=== PATIENT | male | born 2000 | race Caucasian/White ===

== ENCOUNTER → 2021-11-09 12:04 | Outpatient (CLI) | payer OTHER, SELFPAY ==
--- NOTE | ~2021-11-09 | XR_ITS ---
EXAMINATION: XR wrist LT min 3V DATE: 11/09/2021 12:18 INDICATION: Left wrist pain. TECHNIQUE: 4 views of left wrist were obtained. COMPARISON: None. FINDINGS: Bone alignment is normal. No fracture. Joint spaces are well maintained. IMPRESSION: 1. Normal left wrist. Reviewed, dictated and finalized at location A. IMPRESSION: 1. Normal left wrist.
== END ==
PROVIDERS: PCP Family Medicine; Visit Provider Nurse Practitioner Family
DX: M25.532 Pain in left wrist (principal)
CPT/HCPCS: 73110

== ENCOUNTER 2024-01-26 13:17 | Outpatient (CLI) | payer BC, SELFPAY ==
--- NOTE | ~2024-01-26 | CT_ITS ---
CT of the Abdomen and Pelvis: Indication: Hematochezia Technique: 2.5 mm axial scans were obtained through the abdomen and pelvis following intravenous adm inistration of 100 cc of Omnipaque 350. Dose reduction technique was used on this scan by utilizing a utomated exposure control and iterative reconstruction technique. The dose-length product (DLP) was 1 108.15 mGy-cm. Findings: Scans through the lung bases are unremarkable. The liver, spleen, pancreas, gallbladder, adrenals and kidneys are within normal limits. No evidence of aortic aneurysm. No lymphadenopathy. No bowel obstruction or bowel wall thickening. There is no evidence to suggest acute appendicitis. Images through the pelvis were performed. Urinary bladder unremarkable. No pelvic mass seen. No ascit es. Impression: No significant abnormalities seen. Reviewed, dictated and finalized at [facility]. Impression: No significant abnormalities seen.
== END 2024-01-26 13:18 ==
LOC: MICIMG 13:18
PROVIDERS: PCP Family Medicine; Visit Provider Family Medicine
DX: K92.1 Melena (principal); R53.83 Other fatigue; R19.7 Diarrhea, unspecified
CPT/HCPCS: 74177; Q9967

== ENCOUNTER 2025-06-02 08:03 | Outpatient (CLI) | payer BC, SELFPAY ==
--- NOTE | ~2025-06-02 | CT_ITS ---
EXAMINATION: CT soft tissue neck w con DATE: 06/02/2025 08:31 INDICATION: Throat pain. TECHNIQUE: Computed tomography (CT) of the neck was performed with 75 mL Omnipaque-350 intravenous contrast. Automated exposure control and iterative reconstruction technique were employed. The dose-length product was 520.57 mGy-cm. COMPARISON: None FINDINGS: There are no pathologically enlarged lymph nodes. The major salivary glands are normal. The mastoid air cells are normal. There is mucosal thickening in the paranasal sinuses. The pharynx and larynx are normal. There is mild cervical spondylosis. IMPRESSION: 1. No etiology for the patient's symptoms. Reviewed, dictated and finalized at location E. SPORTATION PLANNING TECHNICIAN
== END 2025-06-02 08:04 | disposition home or self-care (01) ==
PROVIDERS: PCP Family Medicine; Visit Provider Pediatrics
DX: R07.0 Pain in throat (principal)
CPT/HCPCS: 70491; Q9967

== ENCOUNTER 2025-07-08 12:27 | Outpatient (CLI) | payer BC, SELFPAY ==
--- OUTSIDE RECORDS SUMMARY | 2024-06-16 03:00 | XMS_ITS ---
Author Organization [facility] [place] Address [address] [place] [address] Care Team Providers Care Pigment And Lacquer Mixer Name Role Phone Dr. Edwar Escalante Primary Care Provider [phone] Migration, Provider Unavailable Unavailable REASON FOR VISIT EMR-Theo Encounters Encounter Location Date Provider Diagnosis [facility] [address] [place] [address] 06/16/2024 Provider Migration Plan Of Treatment Medication Medication Name Sig Start Date Stop Date Notes Silvadene 1 % Cream External two times a day; Duration: 0 01/22/2022 10/17/2023 ,discontinuereason: Discontinued Naproxen 500 MG Tablet 1 Oral two times a day; Duration: 14 11/10/2021 11/23/2021 dexAMETHasone 6 MG Tablet 1 Oral every d ay; Duration: 5 03/16/2024 03/20/2024 Vitamin D3 oral; Duration: 0 10/27/2021 10/17/2023 ,discon tinuereason: Discontinued *Pick strength-form from [facility] for eRX* traMADol HCl 50 MG Tablet 1 Oral Q6H; Duration: 0 03/16/2024 03/16/2024 Sulfamethoxazole-Trimetho prim 800-160 MG Tablet 1 Oral two times a day; Duration: 08/18/2022 08/27/2022 Progress Notes * Nick BILLYDOB:2000 (25 yo M)Acc No.[id number]:06/16/2024 Patient: Blake Nick CLEMENT :2000 A ge:24 Y S ex:Male Phone: Address:[address] [place] [address], [phone] * Refills Stop dexAMETHasone Tablet, 6 MG, Oral, 5, 1, every day, 5 Stop Vitamin D3, oral, 0 Stop Sulfamethoxazole-Trimethoprim Tablet, 800-160 MG, Oral, 20, 1, two times a day, 10 Stop Naproxen Tablet, 500 MG, Oral, 28, 1, two times a day, 14 Stop traMADol HCl Tablet, 50 MG, Oral, 25, 1, Q6H, 0 Stop dexAMETHasone Tablet, 6 MG, Oral, 1, 1, every day, 1 Stop Silvadene Cream, 1 %, External, 30, two times a day, 0 Subjective: * Chief Complaints: * E MR-Theo Objective: Past Vitals:* 05/29/2024 BP: 132/82 mm Hg, HR: 70 /mi n, Oxygen sat %: 97 %, Wt: 242.13 lbs, Wt-k.83 kg * 01/25/2024 BP: 132/83 mm Hg, HR: 74 /mi n, Oxygen sat %: 98 %, Wt: 248.79 lbs, Wt-k.85 kg * * Date:
--- OUTSIDE RECORDS SUMMARY | 2024-06-17 03:00 | XMS_ITS ---
Author Organization [facility] Address [address] [place] [address] Care Team Providers Care Certified Physician Assistant Name Role Phone Dr. Edwar Escalante Primary Care Provider [phone] Migration, Provider Unavailable Unavailable Allergies Allergen (clinical drug ingredient) Drug/Non Drug Allergy documented on EMR Reaction Allergy Type Onset Date Status cephalexin Cephalexin hives Drug Allergy 10/27/2021 Acti ve REASON FOR VISIT EMR-Theo Medications Medication SIG (Take, Route, Frequency, Duration) Notes Start Date End Date Status tiZANidine HCl 4 MG Tablet 1 Oral Q6H; Duration: 7 ,PRN Reason:for back pain 03/16/2024 Active Ketoconazole 2 % Cream External two time s a day; Duration: 0 04/12/2024 Active Encounters Encounter Location Date Provider Diagnosis [facility] [address] [place] [address] 06/17/2024 Provider Migration Plan Of Treatment No Information Progress Notes * Nick BILLYDOB:2000 (25 yo M)Acc No.[id number]:06/17/2024 Patient: Blake CLEMENT Nick :2000 A ge:24 Y S ex:Male Phone: Address:[address] [place] [address], [phone] Subjective: * Chief Complaints: * E MR-Theo * Family History: G randmother: Paternal Grandmother: Diabetes mellitus Type 2. * Medications: T akingtiZANidine HCl 4 MG Tablet 1 Oral Q6H , Notes to Pharmacist: ,PRN Reason:for back painKetoconazole 2 % Cream External two times a day Taking tiZANidine HCl 4 MG Tablet 1 Oral Q6H , Notes to Pharmacist: ,PRN Reason:for back painTaking Ketoconazole 2 % Cream External two times a day * Allergies: C ephalexin: hives - Allergy - Onset Date 10/27/2021 Objective: Past Vitals:* 05/29/2024 BP: 132/82 mm Hg, HR: 70 /mi n, Oxygen sat %: 97 %, Wt: 242.13 lbs, Wt-k.83 kg * 01/25/2024 BP: 132/83 mm Hg, HR: 74 /mi n, Oxygen sat %: 98 %, Wt: 248.79 lbs, Wt-k.85 kg * * Date:
--- NOTE | ~2025-07-08 | XR_ITS ---
EXAMINATION: SCOLIOSIS DATE: 07/10/2025 13:26 KITCHEN STEWARD/STEWARDESS INDICATION: Spinal curvature TECHNIQUE: Standing AP and lateral views of the thoracolumbar spine FINDINGS: There are 12 rib bearing thoracic vertebral bodies and 5 non-rib bearing lumbar type vertebral bodies. There is no listhesis, compression deformity or vertebral body anomalies. There is mild S-shaped curvature of the thoracolumbar spine measuring 6 degrees at the thoracic spine centered at T9 and 4 degrees in the lumbar spine centered at L3-4. IMPRESSION: 1. Mild S-shaped curvature of the thoracolumbar spine described above. 2. No vertebral body anomalies. Reviewed, dictated and finalized at location O. HEN STEWARD/STEWARDESS
--- OUTSIDE RECORDS SUMMARY | 2025-07-08 13:57 | XMS_ITS | Encounter Summary ---
Author Organization [facility] Address [facility] [place] [address] Care Team Providers Care Continuous Pickling Line Pickler Name Role Phone Edwar Escalante MD Primary Care Provider Encounter Details Date Type Department Care Team (Late st Contact Info) Description 05/26/2022 [employer] Message [facility] Patient Accounts [address] [place] [address] [facility] Provider Monthly Credit Card Payment Social History Tobacco Use Types Packs/Day Years Used Date Smoking Tobacco: Never Smokeless Tobacco: Never Sex and Gender Information Value Date Recorded Sex Assigned at Not on file Legal Sex Male 11:14 PM CDT Gender Identity Not on file Sexual Orientation Not on file documented as of this encounter Plan of Treatment Not on file documented as of this encounter Visit Diagnoses Not on filedocumented in this encounter Care Teams Continuous Pickling Line Pickler Relationship Specialty Start Date End Date Edwar Escalante MD [address] [place] [address] PCP - General PEDIATRICS 02/28/20 documented as of this encounter
--- OUTSIDE RECORDS SUMMARY | 2025-07-08 13:57 | XMS_ITS | Clinical Summary ---
Author Organization [facility] Address [address] [place] [address] Care Team Providers Care Cream Dumper Name Role Phone Dave Hoyos MD Primary Care Provider Source Comments [facility],non-owned Affiliates and Associated Physician Practices is amultiple site organization consisting of ambulatory clinics and hospital sitesin [place], [place], [place] and [place]. This disclosure is being madepursuant to the Care Everywhere program and may not contain all information available regarding this patient. Last updated 18.[facility] Allergies No known active allergies Medications * Be aware that medications may not be up to date on this document. Alwaysverify current medications with the patient. No known medications Social History Tobacco Use Types Packs/Day Years Used Date Smoking Tobacco: Never Assessed Sex and Gender Information Value Date Recorded Sex Assigned at Not on file Legal Sex Male 11:31 AM BUSINESS PLANNING DIRECTOR Gender Identity Not on file Sexual Orientation Not on file Last Filed Vital Signs Vital Sign Reading Time Taken Comments Blood Pressure - - Pulse - - Temperature - - Respiratory Rate - - Oxygen Saturation - - Inhaled Oxygen Concentration - - Weight 43 kg (94 lb 12.8 oz) 10/09/2010 11:51 AM CDT Height 153.6 cm (5' 0.47) 10/09/2010 11:51 AM C DT Body Mass Index 18.23 10/09/2010 11:51 AM CDT Plan of Treatment Health Maintenance Due Date Last Done Comments HIV SCREENING 2014 HPV VACCINE (1 - Male 3-dose series) 2014 HEPATITIS C SCREENING 03/27/2017 DTAP/TDAP/TD VACCINES (1 - Tdap) 2018 HEPATITIS B VACCINE (1 of 3 - 19+ 3-dose series) 2018 DEPRESSION SCREENING 07/18/2024 COVID-19 VACCINE ( - 2024-2 6 season) 2025 INFLUENZA VACCINE (#1) 2025 ZOSTER VACCINE (1 of 2) 2049 HIB VACCINE Aged Out No longer eligi ble based on patient's age to complete this topic MENINGOCOCCAL (Group B) VACC INE SHARED DECISION-MAKING Aged Out No longer eligibl e based on patient's age to complete this topic MENINGOCOCCAL GROUPS A/C/Y/W VACCINE Aged Out No longer eligible b ased on patient's age to complete this topic PNEUMOCOCCAL VACCINE Aged Out No long er eligible based on patient's age to complete this topic Care Teams Cream Dumper Relationship Specialty Start Date End Date Dave Hoyos MD [address] [place] [address] [id number] PCP - General 10/09/10
--- OUTSIDE RECORDS SUMMARY | 2025-07-08 13:57 | XMS_ITS | Clinical Summary ---
Author Organization [facility] Address [address] [place] [address] Care Team Providers Care Speedboat Driver Name Role Phone Edwar Escalante MD Primary Care Provider [phone] Allergies No known active allergies Medications No known medications Active Problems No known active problems Immunizations Immunization Administration Dates Next Due Tdap (Boostrix) 04/07/2024 Social History Tobacco Use Types Packs/Day Years Used Date Smoking Tobacco: Never Smokeless Tobacco: Never Sex and Gender Information Value Date Recorded Sex Assigned at Not on file Legal Sex Male 11:14 PM CDT Gender Identity Not on file Sexual Orientation Not on file Last Filed Vital Signs Vital Sign Reading Time Taken Comments Blood Pressure 148/96 04/07/2024 9:39 PM CDT Pulse 97 04/07/2024 9:39 PM CDT Temperature 36.4 C (97.6 F) 04/07/2024 9:39 PM CDT Respiratory Rate 20 04/07/2024 9:39 PM CDT Oxygen Saturation 98% 04/07/2024 9:39 PM CDT Inhaled Oxygen Concentration - - Weight 108.9 kg (240 lb) 04/07/2024 9:39 PM CDT Height 182.9 cm (6') 04/07/2024 9:39 PM CDT Body Mass Index 32.55 04/07/2024 9:39 PM CDT Plan of Treatment Health Maintenance Due Date Last Done Comments Annual Physical 2002 Hepatitis C 2017 COVID-19 Vaccine ( season) 2025 Influenza Adult (#1) 2025 05/13/2009 DTaP, Tdap and Td Vaccines (8 - Td or Tdap) 04/07/2034 04/07/2024, 05/08/2012, 04/25/2003, Additional history exists Hepatitis B Vaccines Completed 08/23/2000, 1999, 1999 HPV Vaccines Completed 11/14/2012, 06/18, 05/08/2012 Hepatitis A Vaccines Completed 11/14/2012, 05/08/20 12 Meningococcal Vaccine Completed 03/14/2017, 012 Meningococcal B Vaccine Aged Out No l onger eligible based on patient's age to complete this topic Pneumococcal Vaccine: Pediatrics (0 to 5 Years) and At-Risk Patients (6 to 49 Years) Aged Out No longer eligible based on patient's age to complete this topic RSV Immunizations Under 20 Months Aged Out No longer eligible based on patient's age to complete this topic Insurance [facility] Care Teams Speedboat Driver Relationship Specialty Start Date End Date Edwar Escalante MD [address] [place] [address] PCP - General PEDIATRICS 02/28/20
--- OUTSIDE RECORDS SUMMARY | 2025-07-08 13:57 | XMS_ITS | Patient Health Record ---
Author Organization [facility] Address [address] [place] [address] Care Team Providers Care Small Piece Cutter Name Role Phone Dr. Edwar Escalante Primary Care Provider [phone] Dr. Rebecca Russ Unavailable [phone] Alverto Lazar Unavailable [phone] Rebecca Martinez Unavailable [phone] Dr. Bettina Smith Unavailable [phone] Allergies Allergen (clinical drug ingredient) Drug/Non Drug Allergy documented on EMR Reaction Allergy Type Onset Date Status cephalexin Cephalexin hives Drug Allergy 10/27/2021 Acti ve Results Component Value Reference Range Notes C-Reactive Protein Reviewed date:05/22/2025 06:10:31 PM Interpretation: Performing Lab: Notes/Report: Test Performed by: [address] [address] Quality Assurance Supervisor Trim: Evelio Holloway DO CRP 0.2 0.0-1.0 mg/dL Erythrocyte Sedimentation Ra te Reviewed date:05/22/2025 06:10:31 PM Interpretation: Performing Lab: Notes/Report: Test Performed by: [address] [address] Quality Assurance Supervisor Trim: Evelio Holloway DO ESR, Westergren 2 0-15 mm/hr CBC w Auto Diff Reviewed date:05/22/2025 06:10:31 PM Interpretation: Performing Lab: Notes/Report: Test Performed by: [address] [address] Quality Assurance Supervisor Trim: Evelio Holloway DO WBC 6.4 4.0-11.7 K/mcL RBC 4.63 4.28-5.56 x10*6/mcL Hgb 14.9 13.0-17.0 g/dL Hct 42.8 38.1-48.9 % MCV 92.5 83.4-98.1 fL MCH 32.1 27.0-34.2 pg MCHC 34.8 31.8-35.3 g/dL RDW 12.8 12.0-16.4 % Platelets 220 149-393 K/mcL MPV 10.5 7.0-11.0 fL Neutro Auto 61.7 45.3-79.0 % Lymph Auto 27.7 11.8-45.9 % Glades Auto 8.0 4.4-12.0 % Eosinophil Auto 1.9 0.0-6.3 % Basophil Auto 0.7 0.2-1.6 % Neutro Absolute 3.9 2.4-8.4 x10*3/mcL Lymph Absolute 1.8 0.8-3.7 x10*3/mcL Glades Absolute 0.5 0.3-1.1 x10*3/mcL Eos Absolute 0.1 0.0-0.5 x10*3/mcL Comprehensive Metabolic Pane l Reviewed date:05/22/2025 06:10:31 PM Interpretation: Performing Lab: Notes/Report: Test Performed by: [place] [address] Quality Assurance Supervisor Trim: Evelio Holloway DO Glucose Lvl 85 74-109 mg/dL ADA risk stratification for diabetes <100 mg/dL = Normal 100-125 mg/dL = Increased risk for future diabetes >=126 mg/dL = Diabetes, if on more than one testing occasion BUN 10 7-25 mg/dL Creatinine Lvl 1.09 0.70-1.30 mg/dL eGFR CKD-EPI >90 >=90 mL/min/1.73 m2 The CKD-EPI equation is validated in individuals 18 years of age and older. It is less accurate in patients with extremes of muscle mass, restriction of dietary protein, ingestion of creatine, extra-renal metabolism of creatinine, or treatment with medications that affect renal tubular creatinine secretion. GFR Categories in Chronic Kidney Disease (CKD) GFR GFR (mL/min/1.73 Category: square meters): Interpretation: G1 90 or greater Normal or high* G2 60-89 Mild decrease* G3a 45-59 Mild to moderate decrease G3b 30-44 Moderate to severe decrease G4 15-29 Severe decrease G5 14 or less Kidney failure *In the absence of evidence of kidney damage, neither GFR category G1 nor G2 fulfill the criteria for CKD (Kidney Int Suppl 2013;3:1-150) Calcium Lvl 9.4 8.6-10.3 mg/dL Sodium Lvl 140 136-145 mmol/L Potassium Lvl 4.4 3.5-5.1 mmol/L Slight hemolysis present. Chloride Lvl 107 98-107 mmol/L CO2 26 21-31 mmol/L Anion Gap 6.5 <=16.0 mmol/L Alk Phos 58 34-104 unit/L Bilirubin Total 0.5 0.3-1.0 mg/dL Slight hemolysis present. Albumin Lvl 4.6 3.5-5.2 g/dL Protein Total 6.8 6.4-8.9 g/dL Albumin/Globulin Ratio 2.1 1.1-2.5 ALT 43 7-52 unit/L AST 27 13-39 unit/L Slight hemolysis present. Free T4 And TSH Reviewed date:05/22/2025 06:10:31 PM Interpretation: Performing Lab: Notes/Report: Test Performed by: [place] [address] Quality Assurance Supervisor Trim: Evelio Holloway DO T4 Free 0.71 0.60-1.70 ng/dL TSH 2.35 0.45-5.33 mcIU/mL CT SOFT TISSUE NECK W CON Reviewed date:06/05/2025 06:02:50 PM Interpretation: Performing Lab: Notes/Report: Reason For Referral No Information Medications Medication SIG (Take, Route, Frequency, Duration) Notes Start Date End Date Status Cyclobenzaprine HCl 10 MG Tablet 1 tablet at bedtime as needed Orally Once a day; Duration: 14 days 07/05/2025 Active Naproxen 500 MG Tablet Delayed Release 1 tablet as needed Orally every 12 hrs; Duration: 30 days 07/05/2025 Active Immunizations Vaccine Route Administration Date Status Comme nts Varicella Unknown 04/25/2003 Administered Source VFC Code: : Varicella Unknown 03/01/2014 Administered Source VFC Code: : Tdap Unknown 05/08/2012 Administered Source VFC Code: : Tdap IM Intramuscular 05/26/2013 Administered Source VFC Code: : MMR Unknown 04/04/2000 Administered Source VFC Code: : MMR Unknown 04/25/2003 Administered Source VFC Code: : Meningococcal MCV4P IM Intramuscular 03/14/2017 Administer ed Source VFC Code: : IPV Unknown 1999 Administered Source VFC Code: : IPV Unknown 1999 Administered Source VFC Code: : IPV Unknown 1999 Administered Source VFC Code: : IPV Unknown 04/25/2003 Administered Source VFC Code: : HPV (human papillomavirus), quadrivalent, 3 dose schedule Unknown 05/08/2012 Administered Source VFC Code: : HPV (human papillomavirus), quadrivalent, 3 dose schedule Unknown 07/14/2012 Administered Source VFC Code: : HPV (human papillomavirus), quadrivalent, 3 dose schedule Unknown 11/14/2012 Administered Source VFC Code: : Hib-Hep B Unknown 1999 Administered Source VFC Code: : Hib-Hep B Unknown 1999 Administered Source VFC Code: : Hib-Hep B Unknown 08/23/2000 Administered Source VFC Code: : Hep A, ped/adol, 2 dose Unknown 05/08/2012 Administered Source VFC Code: : Hep A, ped/adol, 2 dose Unknown 11/14/2012 Administered Source VFC Code: : DTaP Unknown 1999 Administered Source VFC Code: : DTaP Unknown 1999 Administered Source VFC Code: : DTaP Unknown 08/23/2000 Administered Source VFC Code: : Social History Section Notes: Tobacco use: None , Alcohol use: None Tobacco use: None , Alcohol use: None Problems Problem Type SNOMED Code ICD Code Onset Dates Problem Status W/U Status Risk Notes Problem Thyroiditis (82587707) Thyroiditis (E06.9) Active confirmed Problem Curvature of spine (disorder) (01552515) Spinal curvature (M43.9) Active confirmed Problem Hemorrhage of rectum and anus (340505178) Hemorrhage of anus and rectum (K62.5) 2 Active confirmed Problem Snoring (02742173) Snoring (R06.83) 4 Active confirmed Problem Fatigue (28314817) Other fatigue (R53.83) 2 Active confirmed Problem Backache (539911513) Dorsalgia, unspecified (M54.9) 4 Active confirmed Problem Melena (4878966) Melena (K92.1) 4 Active confirmed Vital Signs Heart Rate 89 /min 07/05/2025 Temperature 97.9 degrees Fahrenheit 07/05/2025 Respiratory Rate 18 /min 07/05/2025 Height-cm 182.88 cm 07/05/2025 Oximetry 97 % 07/05/2025 Blood pressure diastolic 98 mm Hg 07/05/2025 Weight-kg 116.21 kg 07/05/2025 Height 72.00 in 07/05/2025 Blood pressure systolic 126 mm Hg 07/05/2025 Weight 256.2 lbs 07/05/2025 BMI 34.74 kg/m2 07/05/2025 Encounters Encounter Location Date Provider Diagnosis [address] [address] 08/24/2024 Dr. Rebecca Russ Other viral warts B07.[address] [address] 10/16/2024 Rebecca Martinez Otitis media, unspecified laterality, unspecified otitis media type H66.[address] [address] 11/16/2024 Dr. Rebecca Russ Other viral warts B07.[address] [address] 12/21/2024 Dr. Rebecca Russ Viral wart, unspecified B07.[address] [address] 12/26/2024 Dr. Rebecca Russ Viral wart, unspecified B07.[address] [address] 05/22/2025 Dr. Edwar Escalante Thyroiditis E06.[address] [address] 07/05/2025 Dr. Bettina Smith Mid back pain M54.9 ; Upper back pain M54.9 and Spinal curvature M43.[address] [address] 05/22/2025 Dr. Edwar Escalante Throat pain R07.0 [address] [address] [place] [address] 06/04/2025 Dr. Edwar Escalante Assessments Encounter Date Diagnosis (ICD Code) Assessment Notes Treatment Notes Treatment Clinical Notes Section Notes 05/22/2025 Throat pain (ICD-10 - R07.0) 05/22/2025 Thyroiditis (ICD-10 - E06.9) 10/16/2024 Otitis media, unspecified laterality, unspecified otitis media type (ICD-10 - H66.90) - Fluid buildup behind the eardrum, with discolored yellow fluid in the left ear, suggesting a possible infection. Chronic allergy issues may contribute to ear discomfort and pressure.- Treating for left ear infection at this time. - Prescribed Doxycycline 100 mg twice a day for 7 days; take with food and avoid excessive sunlight with use as it can cause increased skin sensitivity. - Use Flonase nasal spray, one spray in each nostril once a day. - Can also use 2-3 days of Sudafed for ear pressure/pain relief as well. - If symptoms do not improve with treatment plan, the patient is advised to call back for further evaluation and potential adjustment of treatment. 11/16/2024 Other viral warts (ICD-10 - B07.8) leave tape on for 4 hours if possible, 2 hours min. Wash hands with soap and water and remove tape. Handout provided for cantharin. Rec calling with questions or concerns. Phone f/u requested in 2 weeks 12/26/2024 Viral wart, unspecified (ICD-10 - B07.9) Post procedure without path Patient was informed of the following: Apply Vaseline or Aquaphor until the wound is healed or until sutures are removed in approximately 10 days. Wash area gently with soap and water. Monitor for signs and symptoms of infection and call the office with any questions or concerns. 07/05/2025 Mid back pain (ICD-10 - M54.9) Back pain and possible scoliosis:- Back pain possibly related to spinal curvature. Possible scoliosis identified on clinical exam; has been reported by chiropractor, but not previously formally diagnosed by a physician. Differential includes hip misalignment and scoliosis.- Ordered spinal X-rays to assess for scoliosis and degree of curvature. Printed home physical therapy exercise packets for daily use. Prescribed higher dose of cyclobenzaprine (Flexeril). Recommended use of naproxen every 12 hours and extra strength acetaminophen (Tylenol) 2-3 times daily, staggered as needed. Advised to avoid cyclobenzaprine before driving due to possible sedation. Will review X-ray results and call with findings. If symptoms persist or worsen, consider referral to spinal specialist.- Risks and side effects: Discussed possible sedation with higher dose cyclobenzaprine; advised caution with activities requiring alertness. Healthy Upper Back: Exercises material was printed, Back Stretches: Exercises material was printed 07/05/2025 Upper back pain (ICD-10 - M54.9) 12/21/2024 Viral wart, unspecified (ICD-10 - B07.9) Post procedure without path Patient was informed of the following: Apply Vaseline or Aquaphor until the wound is healed or until sutures are removed in approximately 10 days. Wash area gently with soap and water. Monitor for signs and symptoms of infection and call the office with any questions or concerns. 08/24/2024 Other viral warts (ICD-10 - B07.8) Cryotherapy instructions Patient was informed that some mild stinging is normal for 1-2 days. Do not break any blisters that may form as this will reduce infection risk. If blisters do break, apply topical antibiotic ointment until healed. Call the office with any questions or concerns. 3 mm currette was used to pare down all lesions prior to cryotherapy today. consider cantharidin in the future. 07/05/2025 Spinal curvature (ICD-10 - M43.9) Plan Of Treatment Pending Test Test Name Order Date XR SCOLIOSIS 07/05/2025 Insurance Providers Payer Name Payer Address Payer Phone Subscriber Number Group Number Insured Name Patient Relationship to Insured Coverage Start Date Coverage End Date [employer] [address] [place] [address] [id number] [address] Billy Self - patient is the insured 2 Medical (General) History Medical History History ICD Code Snoring R06.83 Melena K92.1 Hemorrhage of anus and rectum K62.5 Dorsalgia, unspecified M54.9 Other fatigue R53.83
== END 2025-07-08 12:28 | disposition home or self-care (01) ==
PROVIDERS: PCP Family Medicine
DX: M43.9 Deforming dorsopathy, unspecified (principal)
CPT/HCPCS: 72082